=== PATIENT | female | born 1985 | race Caucasian/White ===

== ENCOUNTER 2024-05-03 09:04 | Emergency (ER) | payer BC ==
[~2024-05-03] VITALS: Ht 160 cm; Wt 58.4 kg
[2024-05-03 10:10] LABS: BILIRUBIN,URINE NEGATIVE (Neg); CLARITY,URINE CLEAR (Clear); COLOR,URINE YELLOW (Yellow); GLUCOSE, URINE NEGATIVE (Neg); KETONES,URINE NEGATIVE (Neg); LEUKOCYTE ESTERASE ,URINE NEGATIVE (Neg); NITRITES, URINE NEGATIVE (Neg); OCCULT BLOOD,URINE NEGATIVE (Neg); PH,URINE 7.5 (4.8-8.0); PROTEIN,URINE NEGATIVE (Neg); UROBILINOGEN,URINE 0.2 E.U/dL (0.2-1.0)
[2024-05-03 10:11] LABS: UA COLLECTION TYPE NON-SPECIFIED
[2024-05-03 11:24] LABS: HIV ANTIBODY 1&2 RAPID NON-REACTIVE (Neg)
[2024-05-03] MEDS: dexamethasone sod phosphate 10mg/ml inj PO STA (11:57)
[2024-05-03 12:00] VITALS: BP 118/62; PULSE 63; RESP 15; TEMP 98.5; O2SAT 98
== END 2024-05-03 12:01 | disposition home or self-care (01) ==
LOC: ER 09:05
DX: A63.8 Other specified predominantly sexually transmitted diseases (principal)
CPT/HCPCS: 36415; 81003; 86703; 99283